=== PATIENT | female | born 1940 | race Caucasian/White ===

== ENCOUNTER 2022-06-27 16:44 | Inpatient (IN) | payer OTHER ==
[2022-06-27 16:52] VITALS: BMI 26.6
[2022-06-27 17:46] LABS: VENOUS BASE EXCESS 0.6 mmol/L (-2-2); VENOUS O2 SATURATION 52.7 % (70-80); VENOUS PH 7.381 (7.310-7.410)
[2022-06-27 17:51] LABS: BASO % 0.3 % (0-2.0); EOS % 0.2 % (0-4.5); HEMATOCRIT 41.3 % (32.4-45.2); LYMPH % 8.9 % (8-40); MCH 26.1 pg (25.7-33.7); MCHC 31.5 g/dl (32.0-36.0); MEAN CELL VOLUME 82.9 fl (80-96); MEAN PLT VOLUME 9.7 fl (7.5-11.1); NEUT % 79.6 % (42.8-82.8); PLATELET COUNT 206 10^3/uL (134-434); RBC 4.98 M/mm3 (3.60-5.2); RDW 15.1 % (11.6-15.6)
[2022-06-27 17:59] LABS: INR 1.06 (0.83-1.09); PROTHROMBIN TIME (PATIENT) 12.2 SEC (9.7-13.0)
[2022-06-27 18:02] LABS: ACTIVATED PTT 27.4 SECONDS (25.2-36.5)
[2022-06-27 18:17] LABS: CHLORIDE 106 mmol/L (98-107); SODIUM 138 mmol/L (136-145)
[2022-06-27 18:20] LABS: CALCIUM 9.1 mg/dL (8.5-10.1)
[2022-06-27 18:21] LABS: ALBUMIN 3.1 g/dl (3.4-5.0); BLOOD UREA NITROGEN 22.4 mg/dL (7-18); CO2 23 mmol/L (21-32); GLUCOSE,RANDOM 197 mg/dL (74-106)
[2022-06-27 18:23] LABS: CREATININE 1.4 mg/dL (0.55-1.3); SGOT/AST 64 U/L (15-37); SGPT/ALT 26 U/L (13-61)
[2022-06-27 18:24] LABS: CHOLESTEROL 142 mg/dL (50-200); TOT PROT 6.8 g/dl (6.4-8.2); TRIGLYCERIDES 137 mg/dL (0-150)
[2022-06-27 18:26] LABS: LDL CHOLESTEROL (ONLY SJRH) 71 mg/dL (5-100)
[2022-06-27 18:27] LABS: ALK PHOS 88 U/L (45-117); BILIRUBIN,TOTAL 1.2 mg/dL (0.2-1); HDL CHOLESTEROL 57 mg/dL (40-60)
[2022-06-27 18:54] LABS: ANION GAP 9 MMOL/L (8-16)
[2022-06-27 21:02] LABS: BLOOD UREA NITROGEN 20.1 mg/dL (7-18); CALCIUM 8.7 mg/dL (8.5-10.1)
[2022-06-27 21:04] LABS: CREATININE 1.2 mg/dL (0.55-1.3)
[2022-06-27 21:05] LABS: BILIRUBIN,TOTAL 0.5 mg/dL (0.2-1)
[2022-06-27 21:06] LABS: TOT PROT 6.6 g/dl (6.4-8.2)
[2022-06-27] MEDS ORDERED: MIRTAZAPINE 15 MG TABLET (FP) PO SCH (22:00)
[2022-06-27 22:36] LABS: URINE APPEARANCE CLEAR; URINE BILIRUBIN NEGATIVE (NEGATIVE); URINE COLOR YELLOW; URINE GLUCOSE (UA) 2+ (NEGATIVE); URINE KETONE NEGATIVE (NEGATIVE); URINE LEUK ESTERASE NEGATIVE (NEGATIVE); URINE NITRITE NEGATIVE (NEGATIVE); URINE PROTEIN TRACE (NEGATIVE); URINE UROBILINOGEN 0.2 mg/dL (0.2-1.0)
[2022-06-28] MEDS: INSULIN SLIDING SCALE (NOVOLOG) 1 VIAL SQ SCH ×4 (06:23→22:23)
[2022-06-28 08:13] LABS: BASO % 0.4 % (0-2.0); EOS % 0.3 % (0-4.5); HEMATOCRIT 38.8 % (32.4-45.2); HEMOGLOBIN 12.3 GM/dL (10.7-15.3); LYMPH % 13.8 % (8-40); MCH 26.3 pg (25.7-33.7); MCHC 31.8 g/dl (32.0-36.0); MEAN CELL VOLUME 82.6 fl (80-96); MEAN PLT VOLUME 9.2 fl (7.5-11.1); MONO % 13.6 % (3.8-10.2); NEUT % 71.9 % (42.8-82.8); PLATELET COUNT 173 10^3/uL (134-434); RBC 4.69 M/mm3 (3.60-5.2); RDW 14.5 % (11.6-15.6); WHITE BLOOD COUNT 5.1 K/mm3 (4.0-10.0)
[2022-06-28 08:44] LABS: BLOOD UREA NITROGEN 16.8 mg/dL (7-18); CALCIUM 8.8 mg/dL (8.5-10.1); MAGNESIUM 2.2 mg/dL (1.8-2.4)
[2022-06-28 08:45] LABS: ALBUMIN 2.9 g/dl (3.4-5.0)
[2022-06-28 08:46] LABS: PHOSPHOROUS 3.4 mg/dL (2.5-4.9)
[2022-06-28 08:49] LABS: BILIRUBIN,TOTAL 0.7 mg/dL (0.2-1); TOT PROT 6.1 g/dl (6.4-8.2)
[2022-06-28] MEDS ORDERED: DULoxetine HCL 30 MG CAPSULE.DR PO ONE (09:38)
[2022-06-28] MEDS: DEXAMETHASONE SOD PHOSPHATE 4 MG/1 ML VIAL IVPUSH SCH (09:54)
[2022-06-28] MEDS: ENOXAPARIN NA (PORCINE) 40 MG/0.4 ML DISP.SYRIN SQ SCH (09:54)
[2022-06-28] MEDS: DULoxetine HCL 60 MG CAPSULE.DR PO SCH (09:55)
[2022-06-28] MEDS ORDERED: DONEPEZIL HCL 10 MG TABLET (FP) PO SCH (10:00)
[2022-06-28] MEDS: ASPIRIN 325 MG TABLET PO SCH (10:29)
[2022-06-28] MEDS ORDERED: REMDESIVIR 200 MG in SODIUM CHLORIDE 250 ML IVPB ONE (14:00)
[2022-06-28] MEDS: MEMANTINE HCL 10 MG TABLET (FP) PO SCH ×2 (14:42→22:19)
[2022-06-28] MEDS ORDERED: ATORVASTATIN CA 20 MG TABLET (FP) PO SCH (22:00)
[2022-06-28] MEDS: MIRTAZAPINE 15 MG TABLET (FP) PO SCH (22:18)
[2022-06-28] MEDS: ATORVASTATIN CA 40 MG TABLET (FP) PO SCH (22:18)
[2022-06-29] MEDS: INSULIN SLIDING SCALE (NOVOLOG) 1 VIAL SQ SCH ×4 (06:12→21:37)
[2022-06-29 09:11] LABS: BASO % 0.7 % (0-2.0); EOS % 0.1 % (0-4.5); HEMATOCRIT 39.4 % (32.4-45.2); HEMOGLOBIN 12.4 GM/dL (10.7-15.3); LYMPH % 23.4 % (8-40); MCH 26.2 pg (25.7-33.7); MCHC 31.5 g/dl (32.0-36.0); MEAN CELL VOLUME 83.3 fl (80-96); MEAN PLT VOLUME 10.4 fl (7.5-11.1); MONO % 18.8 % (3.8-10.2); PLATELET COUNT 168 10^3/uL (134-434); RBC 4.73 M/mm3 (3.60-5.2); RDW 14.1 % (11.6-15.6); WHITE BLOOD COUNT 3.5 K/mm3 (4.0-10.0)
[2022-06-29 09:48] LABS: CALCIUM 8.9 mg/dL (8.5-10.1)
[2022-06-29 09:49] LABS: BLOOD UREA NITROGEN 22.3 mg/dL (7-18); MAGNESIUM 2.5 mg/dL (1.8-2.4)
[2022-06-29] MEDS ORDERED: DULoxetine HCL 30 MG CAPSULE.DR PO ONE (09:49)
[2022-06-29 09:51] LABS: ALBUMIN 2.7 g/dl (3.4-5.0)
[2022-06-29 09:54] LABS: TOT PROT 5.8 g/dl (6.4-8.2)
[2022-06-29 09:58] LABS: BILIRUBIN,TOTAL 0.3 mg/dL (0.2-1)
[2022-06-29] MEDS: DULoxetine HCL 60 MG CAPSULE.DR PO SCH (09:59)
[2022-06-29] MEDS: MEMANTINE HCL 10 MG TABLET (FP) PO SCH ×2 (09:59→21:24)
[2022-06-29] MEDS: ASPIRIN 325 MG TABLET PO SCH (09:59)
[2022-06-29] MEDS: ENOXAPARIN NA (PORCINE) 40 MG/0.4 ML DISP.SYRIN SQ SCH (10:00)
[2022-06-29] MEDS: DEXAMETHASONE SOD PHOSPHATE 4 MG/1 ML VIAL IVPUSH SCH (10:00)
[2022-06-29] MEDS: REMDESIVIR 100 MG in SODIUM CHLORIDE 250 ML IVPB SCH (14:22)
[2022-06-29] MEDS: ATORVASTATIN CA 40 MG TABLET (FP) PO SCH (21:24)
[2022-06-29] MEDS: MIRTAZAPINE 15 MG TABLET (FP) PO SCH (21:24)
[2022-06-29] MEDS: DONEPEZIL HCL 10 MG TABLET (FP) PO SCH (21:40)
[2022-06-30] MEDS: INSULIN SLIDING SCALE (NOVOLOG) 1 VIAL SQ SCH ×4 (06:12→21:16)
[2022-06-30 08:43] LABS: BASO % 0.2 % (0-2.0); HEMATOCRIT 39.2 % (32.4-45.2); HEMOGLOBIN 12.5 GM/dL (10.7-15.3); MCH 26.2 pg (25.7-33.7); MEAN PLT VOLUME 10.3 fl (7.5-11.1); MONO % 9.1 % (3.8-10.2); NEUT % 74.7 % (42.8-82.8); PLATELET COUNT 209 10^3/uL (134-434); RBC 4.78 M/mm3 (3.60-5.2); RDW 14.2 % (11.6-15.6); WHITE BLOOD COUNT 6.2 K/mm3 (4.0-10.0)
[2022-06-30] MEDS ORDERED: DULoxetine HCL 30 MG CAPSULE.DR PO ONE (09:05)
[2022-06-30 09:15] LABS: ALBUMIN 2.8 g/dl (3.4-5.0); BLOOD UREA NITROGEN 25.1 mg/dL (7-18); CALCIUM 8.6 mg/dL (8.5-10.1); MAGNESIUM 2.1 mg/dL (1.8-2.4)
[2022-06-30 09:18] LABS: CREATININE 0.9 mg/dL (0.55-1.3)
[2022-06-30 09:19] LABS: BILIRUBIN,TOTAL 0.6 mg/dL (0.2-1)
[2022-06-30] MEDS: DEXAMETHASONE SOD PHOSPHATE 4 MG/1 ML VIAL IVPUSH SCH (09:26)
[2022-06-30] MEDS: MEMANTINE HCL 10 MG TABLET (FP) PO SCH ×2 (09:26→21:09)
[2022-06-30] MEDS: ASPIRIN 325 MG TABLET PO SCH (09:27)
[2022-06-30] MEDS: ENOXAPARIN NA (PORCINE) 40 MG/0.4 ML DISP.SYRIN SQ SCH (09:27)
[2022-06-30] MEDS: DULoxetine HCL 60 MG CAPSULE.DR PO SCH (09:27)
[2022-06-30] MEDS: REMDESIVIR 100 MG in SODIUM CHLORIDE 250 ML IVPB SCH (13:04)
[2022-06-30] MEDS: MIRTAZAPINE 15 MG TABLET (FP) PO SCH (21:06)
[2022-06-30] MEDS: DONEPEZIL HCL 10 MG TABLET (FP) PO SCH (21:08)
[2022-06-30] MEDS: ATORVASTATIN CA 40 MG TABLET (FP) PO SCH (21:08)
[2022-07-01] MEDS: INSULIN SLIDING SCALE (NOVOLOG) 1 VIAL SQ SCH ×4 (06:29→21:01)
[2022-07-01 08:40] LABS: BASO % 0.3 % (0-2.0); HEMOGLOBIN 13.9 GM/dL (10.7-15.3); LYMPH % 22.2 % (8-40); MCH 26.1 pg (25.7-33.7); MCHC 31.5 g/dl (32.0-36.0); MEAN CELL VOLUME 82.8 fl (80-96); MEAN PLT VOLUME 9.8 fl (7.5-11.1); MONO % 12.2 % (3.8-10.2); NEUT % 65.3 % (42.8-82.8); PLATELET COUNT 205 10^3/uL (134-434); RBC 5.31 M/mm3 (3.60-5.2); RDW 14.6 % (11.6-15.6); WHITE BLOOD COUNT 4.9 K/mm3 (4.0-10.0)
[2022-07-01] MEDS ORDERED: DULoxetine HCL 30 MG CAPSULE.DR PO ONE (09:10)
[2022-07-01 09:19] LABS: ALBUMIN 2.8 g/dl (3.4-5.0); CALCIUM 8.9 mg/dL (8.5-10.1)
[2022-07-01 09:20] LABS: BLOOD UREA NITROGEN 21.5 mg/dL (7-18); MAGNESIUM 2.3 mg/dL (1.8-2.4)
[2022-07-01 09:23] LABS: CREATININE 0.9 mg/dL (0.55-1.3)
[2022-07-01 09:24] LABS: BILIRUBIN,TOTAL 0.6 mg/dL (0.2-1); TOT PROT 6.1 g/dl (6.4-8.2)
[2022-07-01] MEDS: ASPIRIN 325 MG TABLET PO SCH (10:56)
[2022-07-01] MEDS: DEXAMETHASONE SOD PHOSPHATE 4 MG/1 ML VIAL IVPUSH SCH (10:56)
[2022-07-01] MEDS: ENOXAPARIN NA (PORCINE) 40 MG/0.4 ML DISP.SYRIN SQ SCH (10:56)
[2022-07-01] MEDS: DULoxetine HCL 60 MG CAPSULE.DR PO SCH (10:56)
[2022-07-01] MEDS: MEMANTINE HCL 10 MG TABLET (FP) PO SCH ×2 (10:57→21:01)
[2022-07-01] MEDS ORDERED: amLODIPine BESYLATE 5 MG TABLET (FP) PO ONE (13:12)
[2022-07-01] MEDS: REMDESIVIR 100 MG in SODIUM CHLORIDE 250 ML IVPB SCH (13:24)
[2022-07-01] MEDS: ATORVASTATIN CA 40 MG TABLET (FP) PO SCH (21:01)
[2022-07-01] MEDS: MIRTAZAPINE 15 MG TABLET (FP) PO SCH (21:01)
[2022-07-01] MEDS: DONEPEZIL HCL 10 MG TABLET (FP) PO SCH (21:01)
[2022-07-02] MEDS: INSULIN SLIDING SCALE (NOVOLOG) 1 VIAL SQ SCH ×4 (06:55→21:49)
[2022-07-02 09:57] LABS: BASO % 0.4 % (0-2.0); EOS % 0.5 % (0-4.5); HEMATOCRIT 43.3 % (32.4-45.2); HEMOGLOBIN 13.5 GM/dL (10.7-15.3); LYMPH % 22.6 % (8-40); MCHC 31.2 g/dl (32.0-36.0); MEAN CELL VOLUME 83.3 fl (80-96); MEAN PLT VOLUME 9.8 fl (7.5-11.1); MONO % 8.4 % (3.8-10.2); NEUT % 68.1 % (42.8-82.8); PLATELET COUNT 212 10^3/uL (134-434); RBC 5.19 M/mm3 (3.60-5.2); RDW 14.4 % (11.6-15.6); WHITE BLOOD COUNT 6.6 K/mm3 (4.0-10.0)
[2022-07-02 10:14] LABS: ALBUMIN 2.8 g/dl (3.4-5.0); BLOOD UREA NITROGEN 26.9 mg/dL (7-18); CALCIUM 8.9 mg/dL (8.5-10.1); MAGNESIUM 2.1 mg/dL (1.8-2.4)
[2022-07-02 10:18] LABS: BILIRUBIN,TOTAL 0.4 mg/dL (0.2-1); TOT PROT 6.2 g/dl (6.4-8.2)
[2022-07-02] MEDS: DULoxetine HCL 30 MG CAPSULE.DR PO SCH (10:38)
[2022-07-02] MEDS: DEXAMETHASONE SOD PHOSPHATE 4 MG/1 ML VIAL IVPUSH SCH (10:38)
[2022-07-02] MEDS: MEMANTINE HCL 10 MG TABLET (FP) PO SCH ×2 (10:38→21:46)
[2022-07-02] MEDS: ASPIRIN 325 MG TABLET PO SCH (10:38)
[2022-07-02] MEDS: ENOXAPARIN NA (PORCINE) 40 MG/0.4 ML DISP.SYRIN SQ SCH (10:38)
[2022-07-02] MEDS: amLODIPine BESYLATE 5 MG TABLET (FP) PO SCH (10:38)
[2022-07-02] MEDS: REMDESIVIR 100 MG in SODIUM CHLORIDE 250 ML IVPB SCH (14:11)
[2022-07-02] MEDS: DONEPEZIL HCL 10 MG TABLET (FP) PO SCH (21:46)
[2022-07-02] MEDS: ATORVASTATIN CA 40 MG TABLET (FP) PO SCH (21:46)
[2022-07-02] MEDS: MIRTAZAPINE 15 MG TABLET (FP) PO SCH (21:46)
[2022-07-03] MEDS: INSULIN SLIDING SCALE (NOVOLOG) 1 VIAL SQ SCH ×2 (06:35→11:54)
[2022-07-03 08:31] VITALS: RESP 20
[2022-07-03 09:00] LABS: HEMATOCRIT 40.5 % (32.4-45.2); HEMOGLOBIN 13.2 GM/dL (10.7-15.3); LYMPH % 12.1 % (8-40); MCH 26.3 pg (25.7-33.7); MCHC 32.5 g/dl (32.0-36.0); MEAN PLT VOLUME 9.7 fl (7.5-11.1); MONO % 7.8 % (3.8-10.2); NEUT % 80.1 % (42.8-82.8); PLATELET COUNT 215 10^3/uL (134-434); RDW 14.3 % (11.6-15.6)
[2022-07-03 09:31] LABS: ALBUMIN 2.8 g/dl (3.4-5.0); CALCIUM 8.9 mg/dL (8.5-10.1)
[2022-07-03 09:32] LABS: BLOOD UREA NITROGEN 31.5 mg/dL (7-18); MAGNESIUM 2.3 mg/dL (1.8-2.4)
[2022-07-03 09:35] LABS: CREATININE 0.9 mg/dL (0.55-1.3)
[2022-07-03 09:36] LABS: BILIRUBIN,TOTAL 0.5 mg/dL (0.2-1); TOT PROT 5.9 g/dl (6.4-8.2)
[2022-07-03] MEDS: DEXAMETHASONE SOD PHOSPHATE 4 MG/1 ML VIAL IVPUSH SCH (10:02)
[2022-07-03] MEDS: amLODIPine BESYLATE 5 MG TABLET (FP) PO SCH (10:02)
[2022-07-03] MEDS: MEMANTINE HCL 10 MG TABLET (FP) PO SCH (10:02)
[2022-07-03] MEDS: DULoxetine HCL 30 MG CAPSULE.DR PO SCH (10:03)
[2022-07-03] MEDS: ENOXAPARIN NA (PORCINE) 40 MG/0.4 ML DISP.SYRIN SQ SCH (10:03)
[2022-07-03] MEDS: ASPIRIN 325 MG TABLET PO SCH (10:03)
[2022-07-03 15:07] VITALS: BP 131/63; PULSE 75; TEMP 98.4
[2022-07-04] MEDS ORDERED: DEXAMETHASONE 4 MG TABLET (FP) PO SCH (10:00)
== END 2022-07-03 18:11 | disposition home health service (06) | DRG 999 ==
LOC: JER 16:44 → JERBED 17:30 → INTOOBSV 17:30 → J4S 06-28 02:23 → OBSVTOIN 06-29 12:33
PROVIDERS: ADMIT Family Medicine; ATTEND Nurse Practitioner Family
PROC: XW033E5 Introduction of Remdesivir Anti-infective into Peripheral Vein, Percutaneous Approach, New Technology Group 5 (ICD-10-PCS; principal; 2022-06-28)
DX: U07.1 COVID-19 (principal); J12.82 Pneumonia due to coronavirus disease 2019; G93.41 Metabolic encephalopathy; J96.01 Acute respiratory failure with hypoxia; E11.9 Type 2 diabetes mellitus without complications; E78.5 Hyperlipidemia, unspecified; R29.810 Facial weakness; I10 Essential (primary) hypertension; F03.90 Unspecified dementia, unspecified severity, without behavioral disturbance, psychotic disturbance, mood disturbance, and anxiety
CPT/HCPCS: 0241U-QW; 36415; 70450-TC; 70496-TC; 70498-TC; 70551-TC; 71045-TC-FY; 80053; 80061; 81003; 82010; 82607; 82728; 82803; 82962; 83036; 83735; 84100; 84443; 84484; 85025; 85379; 85610; 85730; 86140; 86780; 86850; 86900; 86901; 87086; 93005; 93010; 94761; 97116-GP; 97161-GP; 99285-25; C9399; G0378

== ENCOUNTER 2025-01-15 16:58 | Inpatient (IN) | payer OTHER ==
[2025-01-15 18:04] LABS: ABSOLUTE IMMATURE GRANULOCYTES 0.06 x10^3/uL (0.0-0.031); BASOPHILS # 0.08 x10^3/uL (0.01-0.08); EOSINOPHIL % 0.3 % (0.7-5.8); EOSINOPHILS # 0.05 x10^3/uL (0.04-0.36); MCHC 29.1 g/dl (32.2-35.5); MEAN CELL VOLUME 87.1 fl (79.4-94.8); MEAN PLT VOLUME 11.8 fl (9.4-12.3); MONOCYTE # 1.00 x10^3/uL (0.24-0.86); MONOCYTE % 6.3 % (4.7-12.5); RDW 17.2 % (12.5-17.0)
[2025-01-15] MEDS ORDERED: ACETAMINOPHEN INJECTION 100 ML ONE (18:06)
[2025-01-15 18:07] LABS: BG HCT 47.0 % (32.4-45.2); VENOUS BASE EXCESS 1.6 mmol/L (-2-2); VENOUS O2 SATURATION 57.7 % (70-80); VENOUS PCO2 45.9 mmHg (38-52); VENOUS PH 7.39 (7.310-7.410)
[2025-01-15] MEDS: SODIUM CHLORIDE 0.9% 500 ML INFUS.BAG IV ONE ×2 (18:17→19:11)
[2025-01-15 18:18] LABS: INR 1.12 (0.83-1.09); PROTHROMBIN TIME (PATIENT) 12.2 SEC (9.7-13.0)
[2025-01-15] MEDS: ACETAMINOPHEN 1000 MG/100 ML BAG IVPB ONE (18:18)
[2025-01-15 18:21] LABS: ACTIVATED PTT 28.3 SECONDS (25.2-36.5)
[2025-01-15 18:25] LABS: CO2 26.0 mmol/L (21-32); GLUCOSE,RANDOM 314.0 mg/dL (74-106)
[2025-01-15 18:27] LABS: CREATININE 1.5 mg/dL (0.55-1.3); SGOT/AST 18.0 U/L (15-37); SGPT/ALT 22.0 U/L (13-61)
[2025-01-15 18:29] LABS: TOT PROT 7.2 g/dl (6.4-8.2)
[2025-01-15 18:31] LABS: ALK PHOS 97.0 U/L (45-117)
[2025-01-15 18:35] LABS: LACTIC ACID 3.8 mmol/L (0.4-2.0)
[2025-01-15] MEDS ORDERED: CEFTRIAXONE 1 GM/50 ML BAG ONE (19:03)
[2025-01-15] MEDS: CEFTRIAXONE 1 GM in DEXTROSE 5%-WATER - 100 ML IVPB ONE (19:11)
[2025-01-15 20:04] LABS: URINE APPEARANCE CLEAR; URINE BILIRUBIN NEGATIVE (NEGATIVE); URINE COLOR YELLOW; URINE GLUCOSE (UA) 3+ (NEGATIVE); URINE KETONE TRACE (NEGATIVE); URINE LEUK ESTERASE NEGATIVE (NEGATIVE); URINE NITRITE NEGATIVE (NEGATIVE); URINE PROTEIN TRACE (NEGATIVE); URINE UROBILINOGEN 0.2 mg/dL (0.2-1.0)
[2025-01-15 20:30] LABS: LACTIC ACID 2.6 mmol/L (0.4-2.0)
[2025-01-15 21:14] LABS: CO2 26.0 mmol/L (21-32); GLUCOSE,RANDOM 288.0 mg/dL (74-106)
[2025-01-15 21:18] LABS: CREATININE 1.3 mg/dL (0.55-1.3)
[2025-01-15] MEDS ORDERED: AZITHROMYCIN IVPB 500 MG/250 ML BAG IVPB ONE (23:32)
[2025-01-15 23:43] LABS: LACTIC ACID 2.3 mmol/L (0.4-2.0)
[2025-01-15] MEDS: AZITHROMYCIN IVPB 500 MG in DEXTROSE 5%-WATER - 250 ML IVPB ONE (23:51)
[2025-01-15] MEDS: SODIUM CHLORIDE 0.45% 1,000 ML IV SCH (23:51)
[2025-01-16] MEDS: SODIUM CHLORIDE 0.45% 1,000 ML IV SCH ×2 (00:21→04:27)
[2025-01-16 00:28] LABS: HCV DIAGNOSTIC IN-HOUSE W/RFLX NON-REACTIVE (NONREACTIVE)
[2025-01-16 00:29] LABS: HIV INTERPRETATION NEGATIVE (NEGATIVE)
[2025-01-16 04:10] LABS: CO2 26.0 mmol/L (21-32); GLUCOSE,RANDOM 176.0 mg/dL (74-106)
[2025-01-16 04:13] LABS: CREATININE 0.9 mg/dL (0.55-1.3)
[2025-01-16 06:12] LABS: CO2 27.0 mmol/L (21-32); GLUCOSE,RANDOM 140.0 mg/dL (74-106)
[2025-01-16 06:15] LABS: CREATININE 0.9 mg/dL (0.55-1.3)
[2025-01-16 08:19] LABS: ABSOLUTE IMMATURE GRANULOCYTES 0.04 x10^3/uL (0.0-0.031); BASOPHILS # 0.06 x10^3/uL (0.01-0.08); EOSINOPHIL % 3.5 % (0.7-5.8); EOSINOPHILS # 0.42 x10^3/uL (0.04-0.36); MCHC 28.9 g/dl (32.2-35.5); MEAN CELL VOLUME 88.3 fl (79.4-94.8); MEAN PLT VOLUME 12.6 fl (9.4-12.3); MONOCYTE # 0.61 x10^3/uL (0.24-0.86); MONOCYTE % 5.0 % (4.7-12.5); RDW 16.8 % (12.5-17.0)
[2025-01-16] MEDS ORDERED: CEFTRIAXONE 1 GM/50 ML BAG ONE (10:09)
[2025-01-16] MEDS: MEMANTINE HCL 10 MG TABLET (FP) PO SCH (10:31)
[2025-01-16] MEDS: amLODIPine BESYLATE 2.5 MG TABLET (FP) PO SCH (10:31)
[2025-01-16] MEDS: CEFTRIAXONE 1 GM in DEXTROSE 5%-WATER - 50 ML IVPB SCH (10:31)
[2025-01-16] MEDS ORDERED: KCL 10 MEQ IVPB 10 MEQ/100 ML INFUS.BAG IVPB ONE ×3 (11:09→14:32)
[2025-01-16] MEDS ORDERED: POTASSIUM CHLORIDE ORAL LIQUID 20 MEQ/15 ML ONE (11:09)
[2025-01-16] MEDS: POTASSIUM CHLORIDE ORAL LIQUID 20 MEQ/15 ML PO ONE (11:16)
[2025-01-16] MEDS: KCL 10 MEQ IVPB 10 MEQ/100 ML INFUS.BAG IVPB SCH (11:16)
[2025-01-16] MEDS: HEPARIN NA (PORCINE) 5,000 UNITS/ML 1ML VIAL SQ SCH (14:44)
[2025-01-16 21:06] LABS: CO2 27.0 mmol/L (21-32); GLUCOSE,RANDOM 222.0 mg/dL (74-106)
[2025-01-16 21:09] LABS: CREATININE 0.8 mg/dL (0.55-1.3)
[2025-01-16] MEDS: DONEPEZIL HCL 10 MG TABLET (FP) PO SCH (22:55)
[2025-01-16] MEDS: ATORVASTATIN CA 20 MG TABLET (FP) PO SCH (22:55)
[2025-01-16] MEDS: AZITHROMYCIN IVPB 500 MG/250 ML BAG IVPB SCH (22:55)
[2025-01-17 07:20] LABS: ABSOLUTE IMMATURE GRANULOCYTES 0.03 x10^3/uL (0.0-0.031); BASOPHILS # 0.05 x10^3/uL (0.01-0.08); EOSINOPHIL % 4.4 % (0.7-5.8); EOSINOPHILS # 0.38 x10^3/uL (0.04-0.36); MCHC 28.7 g/dl (32.2-35.5); MEAN CELL VOLUME 88.4 fl (79.4-94.8); MEAN PLT VOLUME 12.9 fl (9.4-12.3); MONOCYTE # 0.50 x10^3/uL (0.24-0.86); MONOCYTE % 5.9 % (4.7-12.5); RDW 16.6 % (12.5-17.0)
[2025-01-17 07:40] LABS: CO2 25.0 mmol/L (21-32); GLUCOSE,RANDOM 140.0 mg/dL (74-106)
[2025-01-17 07:43] LABS: CREATININE 0.8 mg/dL (0.55-1.3); SGOT/AST 18.0 U/L (15-37); SGPT/ALT 17.0 U/L (13-61)
[2025-01-17 07:46] LABS: ALK PHOS 69.0 U/L (45-117)
[2025-01-17 07:47] LABS: TOT PROT 5.2 g/dl (6.4-8.2)
[2025-01-17 19:01] VITALS: BMI 28.5
[2025-01-18 06:46] LABS: ABSOLUTE IMMATURE GRANULOCYTES 0.04 x10^3/uL (0.0-0.031); BASOPHILS # 0.05 x10^3/uL (0.01-0.08); EOSINOPHIL % 3.2 % (0.7-5.8); EOSINOPHILS # 0.24 x10^3/uL (0.04-0.36); MCHC 29.7 g/dl (32.2-35.5); MEAN CELL VOLUME 85.6 fl (79.4-94.8); MEAN PLT VOLUME 12.2 fl (9.4-12.3); MONOCYTE # 0.49 x10^3/uL (0.24-0.86); MONOCYTE % 6.6 % (4.7-12.5); RDW 16.0 % (12.5-17.0)
[2025-01-18 07:10] LABS: CO2 25.0 mmol/L (21-32); GLUCOSE,RANDOM 157.0 mg/dL (74-106)
[2025-01-18 07:13] LABS: CREATININE 0.8 mg/dL (0.55-1.3); SGOT/AST 14.0 U/L (15-37); SGPT/ALT 16.0 U/L (13-61)
[2025-01-18 07:14] LABS: TOT PROT 5.1 g/dl (6.4-8.2)
[2025-01-18 07:17] LABS: ALK PHOS 74.0 U/L (45-117)
[2025-01-18] MEDS: AMINO ACIDS/PROTEIN HYDROLYS 30 ML LIQUID.PKT PO SCH (10:13)
[2025-01-18] MEDS: MULTIVITAMINS (DAILY MVI) TABLET (FP) PO SCH (10:14)
[2025-01-18] MEDS: ASCORBIC ACID 500 MG TABLET (FP) PO SCH (10:14)
[2025-01-18] MEDS: SODIUM CHLORIDE 0.45% 1,000 ML IV SCH (15:39)
[2025-01-19 07:32] LABS: ABSOLUTE IMMATURE GRANULOCYTES 0.05 x10^3/uL (0.0-0.031); BASOPHILS # 0.05 x10^3/uL (0.01-0.08); EOSINOPHIL % 2.5 % (0.7-5.8); EOSINOPHILS # 0.23 x10^3/uL (0.04-0.36); MCHC 30.5 g/dl (32.2-35.5); MEAN CELL VOLUME 82.7 fl (79.4-94.8); MEAN PLT VOLUME 12.7 fl (9.4-12.3); MONOCYTE # 0.73 x10^3/uL (0.24-0.86); MONOCYTE % 8.1 % (4.7-12.5); RDW 15.9 % (12.5-17.0)
[2025-01-19 08:32] LABS: CO2 22.0 mmol/L (21-32); GLUCOSE,RANDOM 206.0 mg/dL (74-106)
[2025-01-19 08:35] LABS: CREATININE 0.8 mg/dL (0.55-1.3); SGOT/AST 29.0 U/L (15-37)
[2025-01-19 08:36] LABS: SGPT/ALT 24.0 U/L (13-61)
[2025-01-19 08:37] LABS: ALK PHOS 84.0 U/L (45-117); TOT PROT 5.4 g/dl (6.4-8.2)
[2025-01-19] MEDS ORDERED: MEMANTINE HCL 5 MG TABLET (UD) PO SCH (10:11)
[2025-01-19] MEDS: MEMANTINE HCL 5 MG TABLET (UD) PO SCH (10:16)
[2025-01-19 11:24] VITALS: BP 130/52; PULSE 73; RESP 13; TEMP 98.2
== END 2025-01-19 14:11 | disposition home health service (06) | DRG 871 ==
LOC: JER 16:58 → JERBED 19:52 → J4S 01-16 17:52
PROVIDERS: ADMIT Internal Medicine; ATTEND Internal Medicine
DX: A41.89 Other specified sepsis (principal); G93.41 Metabolic encephalopathy; E87.0 Hyperosmolality and hypernatremia; N17.9 Acute kidney failure, unspecified; E87.20 Acidosis, unspecified; E11.9 Type 2 diabetes mellitus without complications; E78.5 Hyperlipidemia, unspecified; E86.0 Dehydration; F02.80 Dementia in other diseases classified elsewhere, unspecified severity, without behavioral disturbance, psychotic disturbance, mood disturbance, and anxiety; F32.A Depression, unspecified; R50.9 Fever, unspecified; K52.9 Noninfective gastroenteritis and colitis, unspecified; L89.152 Pressure ulcer of sacral region, stage 2
CPT/HCPCS: 36415; 70450-TC; 71045-TC-FY; 71250-TC; 74176-TC; 80048; 80053; 81003; 82803; 82962; 83036; 83605; 83735; 84100; 84484; 85025; 85610; 85730; 86803; 86850; 86900; 86901; 87040; 87045; 87046; 87086; 87205; 87209; 87324; 87389; 87449; 87637-QW; 93005; 93010; 97116-GP; 99291